=== PATIENT | female | born 1965 | race Caucasian/White ===

== ENCOUNTER 2018-06-22 16:13 | Emergency (ER) | payer OTHER ==
[~2018-06-22] VITALS: Ht 177.8 cm; Wt 97.5 kg
[2018-06-22 16:16] VITALS: BP 139/91
[2018-06-22] MEDS ORDERED: IBUPROFEN 400 MG TAB PO ONE (17:50)
[2018-06-22 17:53] VITALS: BP 139/91
== END 2018-06-22 17:54 ==
LOC: MED 16:13
DX: R20.0 Anesthesia of skin (principal); G89.29 Other chronic pain; M54.5 Low back pain; Z88.2 Allergy status to sulfonamides; Z02.89 Encounter for other administrative examinations
CPT/HCPCS: 99283